=== PATIENT | female | born 1980 | race Caucasian/White ===

== ENCOUNTER 2019-08-01 08:03 | Emergency (ER) | payer OTHER, SELFPAY ==
--- NOTE | 2019-08-01 08:17 | ED.GENADULT ---
HPI - General Adult General Chief complaint: Eye Problems Stated complaint: eye problems Time Seen by Provider: 08/01/19 08:29 Source: patient Mode of arrival: ambulatory Limitations: no limitations History of Present Illness HPI narrative: 39-year-old female patient presents to the [facility] with complaints of left eye swelling that started yesterday morning. Patient states 2 nights ago she was sitting outside and has been outside a lot this weekend and she states she thinks she might of gotten some insect bites. Patient states that yesterday morning when she woke up she noticed some swelling to the top limit of her left eye. Patient states that she did have some antihistamine eyedrops at home that she was taking as well as her Flonase and did take some Benadryl last night. Patient states she woke up this morning and now has the left top lid and the lower lid swollen. Patient states it is itchy at times. Denies any pain. Denies any vision changes. Patient denies any trouble breathing, swallowing, chest pain. Patient states that she is dealing with allergies right now which is why she takes the Flonase. Related Data Home Medications Medication Instructions Recorded Confirmed norethindrone ac-eth estradiol 1 tablet PO DAILY 08/01/19 08/01/19 [June ()] Allergies Allergy/AdvReac Type Severity Reaction Status Date / Time No Known Allergies Allergy Unverified 08/01/19 08:31 Review of Systems Review of Systems: Narrative: CONSTITUTIONAL: Denies fever, chills, or sweats. EYES: Denies visual changes, redness, or discharge. Positive swelling to left upper and left lower eyelids ENT: Denies rhinorrhea, congestion, sore throat, or otalgia. CARDIOVASCULAR: Denies chest pain, palpitations, or edema. RESPIRATORY: Denies cough or dyspnea. GASTROINTESTINAL: Denies abdominal pain, nausea, vomiting, or diarrhea. GENITOURINARY: Denies dysuria or hematuria. SKIN: Denies rash or itching. MUSCULOSKELETAL: Denies back pain, joint pain, or myalgia. NEUROLOGIC: Denies headache, numbness, or weakness. PSYCHIATRIC: Denies anxiety or depression. PMFSH Comments At the time of my signature I agree with nursing past medical history, surgical, social, and family history. There is no relevant family history pertinent to the presenting complaint. Exam Narrative: Exam Narrative: GENERAL: Well-appearing, well-nourished, and in no acute distress. HEAD: Normocephalic, atraumatic. EYES: PERRLA and EOM intact without limitation or complaint of pain, no periorbital soft tissue swelling , patient does have swelling noted to the left upper lid and left lower lid on the left eye. No erythema, warmth or tenderness noted, no obvious deformity. No crusting or swelling.no tearing or draining.No photophobia. No nystagmus No FB or lesion on lid eversion. Corneas grossly clear, no obvious FB or hyphens/hypopyon. No injection to sclera. lashes clear. ENT: Nares clear, no rhinorrhea or epistaxis. Mucous membranes moist. Posterior pharynx with no erythema, tonsil enlargement, exudates or lesions present NECK: Supple. No lymphadenopathy CHEST: Clear to auscultation. No respiratory distress. HEART: Regular rate and rhythm. No murmur heard. Normal peripheral pulses. ABDOMEN: Soft, nontender, nondistended, normal active bowel sounds. EXTREMITIES: Normal range of motion. No edema. SKIN: Warm, dry, no rash. NEURO: No focal deficits. Alert and oriented x3. Course Vital Signs Vital signs: Vital Signs Temperature 36.4 C L 08/01/19 08:27 Pulse Rate 84 08/01/19 08:27 Respiratory Rate 16 08/01/19 08:27 Blood Pressure 124/78 08/01/19 08:27 Pulse Oximetry 100 08/01/19 08:27 Temperature 36.4 C L 08/01/19 08:27 Pulse Rate 84 08/01/19 08:27 Respiratory Rate 16 08/01/19 08:27 Blood Pressure 124/78 08/01/19 08:27 Pulse Oximetry 100 08/01/19 08:27 Vital signs reviewed. Medical Decision Making Differential Diagnosis Differenti
[2019-08-01 08:27] VITALS: BP 124/78; PULSE 84; RESP 16; TEMP 36.4; O2SAT 100
== END 2019-08-01 08:43 | disposition home or self-care (01) ==
PROVIDERS: Emergency Provider Nurse Practitioner Family
DX: T78.40XA Allergy, unspecified, initial encounter (principal)
CPT/HCPCS: 99213; G0463

== ENCOUNTER 2019-11-24 08:38 | Emergency (ER) | payer OTHER, SELFPAY ==
[2019-11-24 08:53] VITALS: BP 132/77; PULSE 92; RESP 16; TEMP 37.2; O2SAT 100
--- NOTE | 2019-11-24 09:00 | ED.GENADULT ---
HPI - General Adult General Chief complaint: Upper Respiratory Infection Stated complaint: Possible Sinus infection Time Seen by Provider: 11/24/19 09:00 Source: patient and RN notes reviewed Mode of arrival: ambulatory Limitations: no limitations History of Present Illness HPI narrative: 39-year-old female presents with upper respiratory infection, sneezing, some facial congestion, facial pressure for the past 1.5 months. Symptoms increased over the past 48 hours. Flonase, Zyrtec, Claritin, and Saline without relief. No facial swelling. No cough. Nasal congestion and rhinorrhea. No sore throat. No high fevers, drooling, neck or throat swelling. No voice change. No nausea, vomiting, or abdominal pain. Tolerating liquids well. Denies chills, dyspnea, difficulty swallowing, jaw pain, dental pain, foreign body sensation, and rash. No chest pain or shortness of breath. The patient reports she have not been diagnosed with COVID-19. The patient reports she is not waiting for the results of a COVID-19 lab test. The patient reports she do not have fever, chills, weakness, or fatigue. The patient reports she do not have a new or worsening cough or shortness of breath. Denies chest pain. The patient reports she do not have any loss of taste or diarrhea. Denies recent traveling. Denies concerns for COVID-19 or exposures been home with limited outdoor exposure except for essential household needs, work, and return home. At this time, patient is not suspected of having COVID-19. Some parts of this dictation were generated by voice recognition software and may contain typographical and/or grammatical inaccuracies. Related Data Home Medications Medication Instructions Recorded Confirmed norethindrone ac-eth estradiol tablet 02/28/19 [June (21)] Allergies Allergy/AdvReac Type Severity Reaction Status Date / Time No Known Allergies Allergy Unverified 11/24/19 09:12 Review of Systems Review of Systems: Narrative: CONSTITUTIONAL: Denies fever, chills, sweats. EYES: Denies visual changes, redness, discharge. ENT: Complains of rhinorrhea, congestion, facial congestion and pressure. Denies sore throat, otalgia. CARDIOVASCULAR: Denies chest pain, palpitations, edema. RESPIRATORY: Denies dyspnea, wheezing, cough. GASTROINTESTINAL: Denies abdominal pain, nausea, vomiting, diarrhea. GENITOURINARY: Denies dysuria, hematuria, abnormal discharge SKIN: Denies rash or itching. MUSCULOSKELETAL: Denies acute back pain, joint pain, or myalgia. NEUROLOGIC: Denies numbness, or focal weakness. PSYCHIATRIC: Denies anxiety or depression. All other systems reviewed & are unremarkable except as noted in HPI and below. [facility] Past Medical History Medical History (Updated 11/25/19 @ 00:00 by Bekah Saeed) Allergies Surgical History Surgical History (Updated 11/24/19 @ 09:36 by TIBURCIO Barr) History of tonsillectomy Family History Family History (Updated 11/24/19 @ 09:37 by TIBURCIO Barr) Sibling Family history of diabetes mellitus in first degree relative Family history of type 2 diabetes mellitus Father , Multiple myeloma Multiple myeloma Mother Alive and well Social History Social History (Updated 11/24/19 @ 09:37 by TIBURCIO Barr) Smoking status: Never smoker Tobacco type: cigarettes Second hand tobacco smoke exposure: No Alcohol intake: current Substance use: never Living arrangements: with family Occupation/Education: occupation Gender identity (if verbalized by the patient): Female Comments At time of signature, agree with nurse past medical, surgical, social, and family history. There is relevant patient's past medical history pertinent to the presenting complaint, no relevant family history pertinent to the presenting complaint. Exam Narrative: Exam Narrative: GENERAL: This is a well-nourished, well-developed patient, in no appare
== END 2019-11-24 09:16 | disposition home or self-care (01) ==
PROVIDERS: Emergency Provider Nurse Practitioner Family; PCP Family Medicine
DX: J32.9 Chronic sinusitis, unspecified (principal)
CPT/HCPCS: 99213; G0463

== ENCOUNTER 2020-01-13 12:08 | Outpatient (CLI) | payer OTHER, SELFPAY ==
[2020-01-13 12:38] LABS: Basophils Percent Auto 0.4 % (0.2-1.2); Eosinophils Absolute Auto 0.1 K/mm3 (0-0.3); Eosinophils Percent Auto 0.7 % (0-4.4); Hematocrit 39.1 % (37.0-47.0); Hemoglobin 13.6 g/dL (12.0-15.0); Immature Granulocyte Absolute 0.02 K/mm3 (0.00-0.031); Immature Granulocyte Percent A 0.3 % (0-0.5); Lymphocytes Absolute Auto 3.07 K/mm3 (0.9-3.2); Lymphocytes Percent Auto 43.2 % (18.3-44.2); Mean Corpuscular HGB Conc 34.8 g/dl (32-36); Mean Corpuscular Hemoglobin 30.4 pg (26-34); Mean Corpuscular Volume 87.3 fl (80-100); Mean Platelet Volume 8.9 fl (7.4-10.4); Monocytes Absolute Auto 0.4 K/mm3 (0.1-0.6); Monocytes Percent Auto 5.8 % (2.6-8.5); Neutrophils Absolute Auto 3.5 K/mm3 (1.3-6.7); Neutrophils Percent Auto 49.6 % (45.5-73.1); Platelet Count Result 299 k/mm3 (150-375); Red Blood Count 4.48 M/mm3 (4.2-5.4); Red Cell Distribution Width 11.9 % (11.5-14.5); White Blood Count 7.1 K/mm3 (4.5-10.0)
[2020-01-13 12:54] LABS: Alanine Aminotransferase 16 U/L (4-35); Albumin Level 4.3 g/dL (3.5-5.1); Alkaline Phosphatase 81 U/L (38-126); Anion Gap 7 mmol/L (8-16); Aspartate Amino Transferase 25 U/L (14-36); Bilirubin,Total 0.6 mg/dL (0.2-1.3); Blood Urea Nitrogen 13 mg/dL (7-17); Calcium 9.8 mg/dL (8.4-10.2); Carbon Dioxide 30 mmol/L (22-30); Chloride 102 mmol/L (98-107); Cholesterol 214 mg/dL (0-200); Estimated Glomerular Filt Rate > 60; Glucose 121 mg/dL (65-105); HDL Direct 64 mg/dL; Sodium 139 mmol/L (137-145); Triglycerides 184 mg/dL (<150)
[2020-01-13 13:05] LABS: LDL Cholesterol Direct 137 mg/dL
[2020-01-13 13:47] LABS: Vitamin D 25 Hydroxy 51.8 ng/mL
== END 2020-01-13 12:09 | disposition home or self-care (01) ==
PROVIDERS: PCP Family Medicine; Visit Provider Obstetrics & Gynecology
DX: Z00.00 Encounter for general adult medical examination without abnormal findings (principal)
CPT/HCPCS: 36415; 80053; 80061; 82306; 84443; 85025

== ENCOUNTER 2020-04-26 08:44 | Emergency (ER) | payer OTHER, SELFPAY ==
[2020-04-26 09:04] VITALS: BP 120/76; PULSE 83; RESP 16; TEMP 36.6; O2SAT 97
--- NOTE | 2020-04-26 09:23 | ED.EAR ---
HPI - Ear Problem General Chief complaint: Upper Respiratory Infection Stated complaint: sinus infection/ear pain Time Seen by Provider: 04/26/20 08:46 Source: patient Mode of arrival: ambulatory Limitations: no limitations History of Present Illness HPI Narrative: 50-year-old female presents to [facility] with complaints of right ear pain for the past week. Patient reports that she has had intermittent ear infections for the past 2 years. Patient reports that she has started taking Zyrtec and Flonase with little relief. Patient denies cough, runny nose, nasal congestion, fever, body aches, chills, nausea, vomiting or diarrhea. Patient is non-smoker. Patient denies sick contacts. Patient denies recent travel. MD Complaint: ear pain Location: right ear Duration: constant Exacerbating factors: nothing Discharge from ear: Reports no Treatment prior to arrival: other (Zyrtec and Flonase ) Related Data Allergies Allergy/AdvReac Type Severity Reaction Status Date / Time No Known Allergies Allergy Verified 01/13/20 11:22 Review of Systems Constitutional: Constitutional: Denies chills, Denies fatigue, Denies fever(s) and Denies weakness ENT: Denies dysphagia, Denies dizziness, Denies epistaxis, Denies nasal congestion and Denies sore throat Comments: right ear pain Cardiovascular: Cardiovascular: Denies chest pain, Denies rapid heart rate and Denies slow heart rate Respiratory: Respiratory: Denies chest congestion, Denies cough, Denies dyspnea and Denies wheezing Gastrointestinal: Gastrointestinal: Denies abdominal pain, Denies diarrhea, Denies nausea and Denies vomiting Musculoskeletal: Musculoskeletal: Denies back pain Neurologic: Denies vertigo, Denies dizziness and Denies syncope [facility] Past Medical History Medical History Allergies Surgical History Surgical History History of tonsillectomy Family History Family History Sibling Family history of diabetes mellitus in first degree relative Family history of type 2 diabetes mellitus Father , Multiple myeloma Multiple myeloma Mother Alive and well Social History Social History Smoking status: Never smoker Tobacco type: cigarettes Second hand tobacco smoke exposure: No Alcohol intake: current Substance use: never Gender identity (if verbalized by the patient): Female Comments At time of signature, I agree with nursing past medical, surgical, social and family history. There is no relevant family history pertinent to the presenting complaint. Exam Const: General: no acute distress Nutritional Appearance: well nourished Orientation/consciousness: patient oriented x3 HENMT: Head: normal to inspection Ears: external ears normal and TM abnormal with fluid behind the TM on the right Face and sinus: normal facial exam and sinuses nontender Mouth: Yes moist mucous membranes Throat: uvula midline Neck: Neck: normal visual inspection Resp: Effort & Inspection: normal respiratory effort, not labored and not tachypneic Auscultation: clear to auscultation bilaterally Cardio: Rate: regular rate, not bradycardic and not tachycardic Rhythm: regular rhythm Skin: General skin exam: normal color Rashes: no rashes Wounds: no wounds Neuro: General: patient oriented x3, moves all extremities, no meningeal signs and no focal motor deficits Speech: normal speech Psych: Appearance: grossly normal Mental Status: mental status grossly normal Affect: normal affect Attitude: cooperative Thought content: Yes Normal thought content present Course Vital Signs Vital signs: Vital Signs Temperature 36.6 C 04/26/20 09:04 Pulse Rate 83 04/26/20 09:04 Respiratory Rate 16 04/26/20 09:04 Blood Pressure 120/76 04/26/20 0
== END 2020-04-26 09:36 | disposition home or self-care (01) ==
PROVIDERS: Emergency Provider Nurse Practitioner Family; PCP Family Medicine
DX: H65.01 Acute serous otitis media, right ear (principal)
CPT/HCPCS: 99213; G0463

== ENCOUNTER 2020-05-25 11:27 | Emergency (ER) | payer OTHER, SELFPAY ==
[2020-05-25 11:42] VITALS: BP 131/83; PULSE 88; RESP 16; TEMP 36.8; O2SAT 99
--- NOTE | 2020-05-25 11:59 | ED.GENADULT ---
HPI - General Adult General Chief complaint: Ear Stated complaint: Ear Pain Time Seen by Provider: 05/25/20 11:57 Source: patient and RN notes reviewed Mode of arrival: ambulatory Limitations: no limitations History of Present Illness HPI narrative: 40-year-old female complains of right otalgia for the past 2 days. Fatou reports increase pain throughout the night. Ibuprofen 600mg this morning without relief. Denies itching or drainage. Denies URI symptoms. No facial swelling. Denies rhinorrhea and nasal congestion. No high fevers, sore throat, drooling, neck or throat swelling. Denies vomiting and abdominal pain. Tolerating liquids well. Remains active. The patient reports she have not been diagnosed with COVID-19. The patient reports she received her 2nd COVID-19 vaccine on 05/12/2020. The patient reports she is not waiting for the results of a COVID-19 lab test. The patient reports she do not have chills, weakness, or fatigue. The patient reports she do not have a new or worsening cough or shortness of breath. Denies chest pain. The patient reports she do not have any loss of taste or smell, nausea, vomiting, abdominal pain, and diarrhea. Tolerating po intake well. Denies recent traveling. Denies concerns for COVID-19 or exposures been home with limited outdoor exposure except for essential household needs, work, and return home. At this time, patient is not suspected of having COVID-19. Some parts of this dictation were generated by voice recognition software and may contain typographical and/or grammatical inaccuracies. Related Data Home Medications Medication Instructions Recorded Confirmed norethindrone ac-eth estradiol 1.5 tablet PO DAILY 05/25/20 05/25/20 [ ()] Allergies Allergy/AdvReac Type Severity Reaction Status Date / Time No Known Allergies Allergy Verified 01/13/20 11:22 Review of Systems Review of Systems: Narrative: CONSTITUTIONAL: Denies fever, chills, sweats. EYES: Denies visual changes, redness, discharge. ENT: Complains of RT otalgia. Denies rhinorrhea, congestion, sore throat. CARDIOVASCULAR: Denies chest pain, palpitations, edema. RESPIRATORY: Denies dyspnea, wheezing, cough. GASTROINTESTINAL: Denies abdominal pain, nausea, vomiting, diarrhea. SKIN: Denies rash or itching. MUSCULOSKELETAL: Denies acute back pain, joint pain, or myalgia. NEUROLOGIC: Denies numbness or focal weakness. PSYCHIATRIC: Denies anxiety or depression. All systems reviewed & are unremarkable except as noted in HPI and below. [facility] Past Medical History Medical History Allergies Surgical History Surgical History History of tonsillectomy Family History Family History Sibling Family history of diabetes mellitus in first degree relative Family history of type 2 diabetes mellitus Father , Multiple myeloma Multiple myeloma Mother Alive and well Social History Social History (Updated 05/25/20 @ 12:12 by TIBURCIO Barr) Smoking status: Never smoker Tobacco type: cigarettes Second hand tobacco smoke exposure: No Alcohol intake: current Substance use: never Living arrangements: with family Occupation/Education: occupation Gender identity (if verbalized by the patient): Female Sexual Orientation (if Verbalized by the Patient): Straight or Heterosexual Comments At time of signature, agree with nurse past medical, surgical, social, and family history. There is no relevant family history pertinent to the presenting complaint. Exam Narrative: Exam Narrative: GENERAL: This is a well-nourished, well-developed patient, in no apparent distress. Talks in full sentences and ambulates with steady gait without dyspnea. HEAD: Normocephalic, atraumatic. EYES: PERRL. Sclera cl
== END 2020-05-25 12:21 | disposition home or self-care (01) ==
PROVIDERS: Emergency Provider Nurse Practitioner Family; PCP Family Medicine
DX: H65.191 Other acute nonsuppurative otitis media, right ear (principal)
CPT/HCPCS: 99213; G0463

== ENCOUNTER 2020-07-24 08:54 | Outpatient (CLI) | payer OTHER, SELFPAY ==
[2020-07-24 09:28] LABS: Add Urine Microscopic? NO; Appearance Urine Clear (Clear); Bilirubin Urine Negative (Negative); Blood Urine Negative (Negative); Color Urine Colorless (Yellow); Glucose Urine UA Negative (Negative); Ketones Urine Negative (Negative); Leukocyte Esterase Ur Negative LEU/UL (Negative); Nitrate Urine Negative (Negative); Protein Urine Negative (Negative); Urobilinogen Urine Negative mg/dL (<2.0)
[2020-07-24 09:48] LABS: Cholesterol 222 mg/dL (0-200); HDL Direct 67 mg/dL; Triglycerides 163 mg/dL (<150)
[2020-07-24 09:50] LABS: Hemoglobin A1C 5.1 % (<5.7)
[2020-07-24 09:59] LABS: LDL Cholesterol Direct 118 mg/dL
[2020-07-24 10:06] LABS: Specific Grav Ur 1.003 (1.001-1.035)
== END 2020-07-24 08:55 | disposition home or self-care (01) ==
PROVIDERS: PCP Registered Nurse; Visit Provider Registered Nurse
DX: E78.2 Mixed hyperlipidemia (principal); R73.9 Hyperglycemia, unspecified; R03.0 Elevated blood-pressure reading, without diagnosis of hypertension
CPT/HCPCS: 36415; 80061; 81003; 83036

== ENCOUNTER 2021-05-10 02:39 | Emergency (ER) | payer OTHER, SELFPAY ==
[2021-05-10] VITALS (17 sets, daily range): BP systolic 116–134; BP diastolic 65–84; PULSE 99–118; RESP 16–27; TEMP 37–38.1; O2SAT 93–100
--- NOTE | ~2021-05-10 | XR_ITS ---
EXAMINATION: XR chest 1V portable DATE: 05/10/2021 03:25 INDICATION: Syncope. TECHNIQUE: A single frontal view of the chest was obtained. COMPARISON: None. FINDINGS: The chest demonstrates clear lungs without pneumonia, pleural effusion, or pneumothorax. Th e heart size is normal. IMPRESSION: 1. No acute cardiopulmonary disease. Reviewed, dictated and finalized at location A. [employer] OPERATOR
--- NOTE | 2021-05-10 03:01 | ECG_ITS ---
Measurements Intervals [place] Rate: 104 P: 35 WA: 121 QRS: 49 QRSD: 78 T: -20 QT: 295 QTc: 389 Interpretive Statements SINUS TACHYCARDIA BORDERLINE ECG BASELINE ARTIFACT NO PREVIOUS ECG AVAILABLE FOR COMPARISON Electronically Signed On 05-10-2021 13:57:19 [employer] by Sony Sparks M.D.
--- NOTE | 2021-05-10 03:13 | ED.SYNCOPE ---
HPI - Syncope General Chief Complaint: Syncope Stated Complaint: syncope, fall and hit head Time Seen by Provider: 05/10/21 02:42 Source: patient and RN notes reviewed Mode of arrival: ambulatory Limitations: no limitations History of Present Illness HPI narrative: This is a 41 year old female who presents for evaluation of a syncopal episode. Patient states tonight around 1 am she woke up feeling her heart racing. Afterwards, she developed tinging all over, nausea and dizziness . Her states patient was leaning over on the edge of the bed, and she fell forward brazing her head on dresser. He states patient brief loss of consciousness. Patient states she has been dealing with presumed influenza symptoms. Her daughter was diagnosed with influenza this past week, and she started having similar symptoms 2 days ago. She is having sinus drainage and congestion and dry cough. She denies chest pain, sob, nausea, vomiting, fever or abdominal pain. She has had previous episode of syncope when she has had viral illness in the past. She denies headache, dizziness, or nausea currently. She also denies neck pain. Related Data Home Medications Medication Instructions Recorded Confirmed norethindrone ac-eth estradiol 1.5 tablet PO DAILY 05/25/20 05/25/20 [Junel ()] Allergies Allergy/AdvReac Type Severity Reaction Status Date / Time No Known Allergies Allergy Verified 07/20/20 15:36 Review of Systems Review of Systems: All systems reviewed & are unremarkable except as noted in HPI and below PMFSH Past Medical History Medical History Allergies Surgical History Surgical History History of tonsillectomy Family History Family History Sibling Family history of diabetes mellitus in first degree relative Family history of type 2 diabetes mellitus Father , Multiple myeloma Multiple myeloma Mother Alive and well Social History Social History Smoking status: Never smoker Tobacco type: cigarettes Second hand tobacco smoke exposure: No Alcohol intake: current Substance use: never Gender identity (if verbalized by the patient): Female Sexual Orientation (if Verbalized by the Patient): Straight or Heterosexual Exam Const: General: no acute distress and alert Orientation/consciousness: patient oriented x3 Eyes: EOM: EOMs intact bilaterally Chest: Chest palpation & inspection: normal inspection of the chest Resp: Effort & Inspection: normal respiratory effort and no retractions Auscultation: clear to auscultation bilaterally Cardio: Rate: tachycardic Rhythm: regular rhythm Heart sounds: no murmurs GI: GI Palp: Yes Soft to palpation, No Tenderness to palpation present (GI) and No Guarding due to palpation present (GI) Auscultation: normal bowel sounds Back/Spine/Pelvis: Back: no CVA tenderness Skin: General skin exam: normal color Rashes: no rashes Neuro: General: patient oriented x3, moves all extremities and CN's II-XI intact bilaterally Gait exam (Neuro): Normal gait present Extrem: General: normal to inspection Psych: Mental Status: mental status grossly normal Affect: normal affect Course Reevaluation(s) Reevaluation #1: Patient has no complaints. She denies headache, dizziness, vomiting. GCS 15. Patient has influenza A and she likely had vasovagal reaction. She has low grade fever so will given tylenol. I have discussed with patient and she is agreeable to discharge home. Date: 05/10/21 Time: 06:00 Vital Signs Vital signs: Vital Signs Temperature 98.6 F 05/10/21 02:56 Pulse Rate 103 H 05/10/21 02:56 Respiratory Rate 16 05/10/21 02:56 Blood Pressure 116/65 05/10/21 02:56 Pulse Oximetry 99 05/10/21 02:
[2021-05-10 03:24] LABS: Basophils Percent Auto 0.4 % (0.2-1.2); Eosinophils Percent Auto 0.1 % (0-4.4); Hematocrit 39.6 % (37.0-47.0); Hemoglobin 13.1 g/dL (12.0-15.0); Immature Granulocyte Absolute 0.02 K/mm3 (0.00-0.031); Immature Granulocyte Percent A 0.2 % (0-0.5); Lymphocytes Percent Auto 16.5 % (18.3-44.2); Mean Corpuscular HGB Conc 33.1 g/dl (32-36); Mean Corpuscular Hemoglobin 30.4 pg (26-34); Mean Corpuscular Volume 91.9 fl (80-100); Mean Platelet Volume 9.2 fl (7.4-10.4); Monocytes Absolute Auto 0.7 K/mm3 (0.1-0.6); Monocytes Percent Auto 8.7 % (2.6-8.5); Neutrophils Absolute Auto 6.3 K/mm3 (1.3-6.7); Neutrophils Percent Auto 74.1 % (45.5-73.1); Platelet Count Result 196 k/mm3 (150-375); Red Blood Count 4.31 M/mm3 (4.2-5.4); White Blood Count 8.5 K/mm3 (4.5-10.0)
[2021-05-10 03:37] LABS: Lactic Acid Reflex 1.4 mmol/L (0.7-2.1)
[2021-05-10] MEDS: LACTATED RINGERS 1,000 ML 999 ML IV CONT ×2 (03:38→04:56)
[2021-05-10 03:39] LABS: Alanine Aminotransferase 19 U/L (4-35); Albumin Level 3.6 g/dL (3.5-5.1); Alkaline Phosphatase 71 U/L (38-126); Anion Gap 5 mmol/L (8-16); Aspartate Amino Transferase 29 U/L (14-36); Bilirubin,Total 0.2 mg/dL (0.2-1.3); Blood Urea Nitrogen 10 mg/dL (7-17); Calcium 7.8 mg/dL (8.4-10.2); Carbon Dioxide 26 mmol/L (22-30); Chloride 105 mmol/L (98-107); Estimated CRCL calculation 77 ml/min; Estimated Glomerular Filt Rate > 60; Glucose 123 mg/dL (65-110); Magnesium 1.8 mg/dL (1.6-2.3); Potassium 3.3 mmol/L (3.4-5.0); Sodium 136 mmol/L (137-145)
[2021-05-10 03:46] LABS: Add Urine Microscopic? YES; Appearance Urine Clear (Clear); Bilirubin Urine Negative (Negative); Blood Urine 1+ (Negative); Color Urine Yellow (Yellow); Glucose Urine UA Negative (Negative); Ketones Urine Negative (Negative); Leukocyte Esterase Ur Negative LEU/UL (Negative); Nitrate Urine Negative (Negative); Protein Urine Negative (Negative); Specific Grav Ur 1.014 (1.001-1.035); Squamous Epithelial Cell Urine Rare /hpf (Few); Urobilinogen Urine Negative mg/dL (<2.0); WBC Urine 0-3 /hpf
[2021-05-10 03:51] LABS: INR 1.1; Partial Thromboplastin Time 27.5 SECONDS (22.3-36.8); Prothrombin Time 13.8 Seconds (11.1-14.7)
[2021-05-10 03:56] LABS: Troponin I < 0.012 ng/mL (0.000-0.034)
[2021-05-10] MEDS: POTASSIUM CHLORIDE 20 MEQ TABLET 40 MEQ PO (04:09)
[2021-05-10 04:14] LABS: D Dimer 0.22 ug/mL (<0.48)
[2021-05-10 04:17] LABS: SARS-CoV-2 RNA PCR Negative
== END 2021-05-10 07:02 | disposition home or self-care (01) ==
PROVIDERS: Emergency Provider General Practice; PCP Registered Nurse
DX: J10.1 Influenza due to other identified influenza virus with other respiratory manifestations (principal); R55 Syncope and collapse; E86.0 Dehydration; Z20.822 Contact with and (suspected) exposure to COVID-19
CPT/HCPCS: 36415; 71045; 80053; 81001; 81025; 83605; 83735; 84484; 85025; 85380; 85610; 85730; 87804; 93005; 96361; 96374; 99284; A9270; C9803; J0131; J7120; U0003; U0005

== ENCOUNTER 2021-06-06 10:50 | Outpatient (CLI) | payer OTHER, SELFPAY ==
[2021-06-06 11:43] LABS: T4 Thyroxine 9.65 ug/dL (5.53-11.0)
== END 2021-06-06 10:51 | disposition home or self-care (01) ==
LOC: ANHLAB 10:51
PROVIDERS: PCP Registered Nurse; Visit Provider Obstetrics & Gynecology
DX: R63.5 Abnormal weight gain (principal)
CPT/HCPCS: 36415; 84436; 84443

== ENCOUNTER 2022-07-11 18:26 | Emergency (ER) | payer OTHER, SELFPAY ==
[2022-07-11 18:40] VITALS: BP 135/97; PULSE 88; RESP 16; TEMP 37.1; O2SAT 98
--- NOTE | 2022-07-11 18:50 | ED.LOWEXIN ---
HPI - Extremity Injury (Lower) General Chief Complaint: Extremity Injury, Lower Stated Complaint: L LOWER LEG INJURY History of Present Illness HPI Narrative: 42 year old female presents to the c/o left calf injury. 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 Patient states she caught herself using her right leg. Patient denies any fall or any other injuries. Patient states she has difficulty bearing weight on their left foot. Patient states her calf pain is positional and becomes worsen with plantar and dorsal flexion. Patient states it hurts the worst with bend her left knee. Patient stated she started weight training on Friday this week and believes she may already injured her left leg earlier this week. Patient denies any previous leg injuries or Achilles injury history. Related Data Home Medications Medication Instructions Recorded Confirmed No Home Medications 07/11/22 07/11/22 Allergies Allergy/AdvReac Type Severity Reaction Status Date / Time No Known Allergies Allergy Verified 07/11/22 18:38 Review of Systems Musculoskeletal: Comments: Positive for leg injury Integumentary/Breasts: Comments: Negative for wound PMFSH Past Medical History Medical History Allergies Surgical History Surgical History History of tonsillectomy Family History Family History Sibling Family history of diabetes mellitus in first degree relative Family history of type 2 diabetes mellitus Father , Multiple myeloma Multiple myeloma Mother Alive and well Social History Social History Smoking status: Never smoker Second hand tobacco smoke exposure: No Alcohol intake: current Substance use: never Lack of Transportation: No Lack of Food: Never True Current Housing: I Have Housing Concerned About Future Housing: No Difficulty Paying Gas/Electric Bills: No Difficulty Paying for Meds: No Currently Unemployed: No Education: Master's Degree or Higher Difficulty w/ Childcare or Family Care: No Living arrangements: with family Occupation/Education: occupation Gender identity (if verbalized by the patient): Female Sexual Orientation (if Verbalized by the Patient): Straight or Heterosexual Exam Const: General: healthy appearing, no acute distress and alert Extrem: General: normal to inspection, no clubbing, cyanosis or edema and no pedal edema Other: Patient has a small focal area that feels as spasm or deep hematoma with no palpable cord or asymmetry at the left calf. Sandhu test negative. Distal PMS intact. No erythema or warmth present. Course Course Emergency Course: Radiology is not available however, I believe radiographic imagery will not provide any diagnostic information given patient examination and HPI. Patient does not exhibit signs of a deep vein thrombosis or any risk factors for a deep vein thrombosis. Plan to provide RICE, crutches provided to prevent weight-bearing activities. Rod wrap applied to the left lower leg. Patient to take over the counter Motrin or Tylenol for pain. Patient to follow up with ortho pr their PCP on Friday if pain persists. Patient to go to the ED if her left calf swells or pain increases over the weekend. Level of Care: Express Care Visit ([id number]) Vital Signs Vital signs: Vital Signs Temperature 37.1 C 07/11/22 18:40 Pulse Rate 88 07/11/22 18:40 Respiratory Rate 16 07/11/22 18:40 Blood Pressure 135/97 H 07/11/22 18:40 Pulse Oximetry 98 07/11/22 18:40 Oxygen Delivery Room Air 07/11/22 18:4
== END 2022-07-11 19:21 | disposition home or self-care (01) ==
PROVIDERS: Emergency Provider Nurse Practitioner Family; PCP Obstetrics & Gynecology
DX: S86.112A Strain of other muscle(s) and tendon(s) of posterior muscle group at lower leg level, left leg, initial encounter (principal); X50.9XXA Other and unspecified overexertion or strenuous movements or postures, initial encounter; Y93.68 Activity, volleyball (beach) (court); Y99.0 Civilian activity done for income or pay
CPT/HCPCS: 99212; G0463

== ENCOUNTER 2023-02-22 18:22 | Emergency (ER) | payer OTHER, SELFPAY ==
[2023-02-22 18:32] VITALS: BP 141/85; PULSE 88; RESP 18; TEMP 36.6; O2SAT 100
--- NOTE | 2023-02-22 18:34 | ED.GENADULT ---
HPI - General Adult General Chief complaint: Wound/Laceration Stated complaint: Dizziness/ Bruised Left Thigh Time Seen by Provider: 02/22/23 18:34 Source: patient, RN notes reviewed and old records reviewed Mode of arrival: ambulatory Limitations: no limitations History of Present Illness HPI narrative: 43-year-old female presents to the [facility] with complaints of tonight during dinner states that she felt extremely overwhelmed, felt tingling and that her heart was racing. Currently with no symptoms. Patient also is concerned for a bruise to the left lateral upper thigh. States it has been there for several days. Patient states that she started cochlear symptoms was worried about a blood clot. Discussed with patient that we cannot work up for blood clot that that would always be emergency room visit. No swelling noted to extremities Patient is nontoxic, vitals stable. Symptoms of the heart racing feeling overwhelmed just started within the last 2 hours, offered COVID and flu testing, patient declined Related Data Home Medications Medication Instructions Recorded Confirmed No Home Medications 07/11/22 02/22/23 Allergies Allergy/AdvReac Type Severity Reaction Status Date / Time No Known Allergies Allergy Verified 02/22/23 18:35 Review of Systems Review of Systems: All systems reviewed & are unremarkable except as noted in HPI and below Constitutional: Constitutional: Reports as per HPI Eyes: Eyes: Reports no additional eye complaints ENT: Reports system reviewed and no additional complaints, except as documented Cardiovascular: Cardiovascular: Reports no additional cardiovascular complaints, Denies chest pain and Denies dyspnea Respiratory: Respiratory: Reports no additional respiratory complaints, Denies chest congestion, Denies cough and Denies dyspnea Gastrointestinal: Gastrointestinal: Reports no additional gastrointestinal complaints, Denies abdominal pain, Denies nausea and Denies vomiting Musculoskeletal: Musculoskeletal: Reports no additional musculoskeletal complaints Integumentary/Breasts: Skin/Breast: Reports as per HPI Neurologic: Reports as per HPI Psychiatric: Psychiatric: Reports no additional psychiatric complaints Allergic/Immunologic: Allergic/Immunologic: Reports no additional allergic/immunologic complaints [facility] Past Medical History Medical History Allergies Surgical History Surgical History History of tonsillectomy Family History Family History Sibling Family history of diabetes mellitus in first degree relative Family history of type 2 diabetes mellitus Father , Multiple myeloma Multiple myeloma Mother Alive and well Social History Social History Smoking status: Never smoker Second hand tobacco smoke exposure: No Alcohol intake: current Substance use: never Lack of Transportation: No Lack of Food: Never True Current Housing: I Have Housing Concerned About Future Housing: No Difficulty Paying Gas/Electric Bills: No Difficulty Paying for Meds: No Currently Unemployed: No Education: Master's Degree or Higher Difficulty w/ Childcare or Family Care: No Living arrangements: with family Occupation/Education: occupation Gender identity (if verbalized by the patient): Female Sexual Orientation (if Verbalized by the Patient): Straight or Heterosexual Comments At the time of my signature, I reviewed and agree with the nursing past medical, surgical, social, and family history. There is no relevant family history pertinent to the patient complaint. Exam Const: General: cooperative, healthy appearing, comfortable, no acute distress, well developed, alert and well nourished Nutritional Appearance: well nourished
== END 2023-02-22 18:48 | disposition home or self-care (01) ==
PROVIDERS: Emergency Provider Nurse Practitioner; PCP Obstetrics & Gynecology
DX: S70.12XA Contusion of left thigh, initial encounter (principal); X58.XXXA Exposure to other specified factors, initial encounter; H65.03 Acute serous otitis media, bilateral
CPT/HCPCS: 99212; G0463

== ENCOUNTER → 2023-05-02 11:13 | Outpatient (CLI) | payer OTHER, SELFPAY ==
--- NOTE | ~2023-05-02 | MM_ITS ---
EXAMINATION: MM screening [facility] BI w kathy HISTORY: Screening TECHNIQUE: Craniocaudal and mediolateral oblique 3-D tomosynthesis images were obtained and synthetic 2-D images were generated. CAD analysis was submitted and interpreted. COMPARISON: No prior mammogram is available for comparison at this institution. BREAST PARENCHYMAL COMPOSITION: There are scattered areas of fibroglandular density. FINDINGS: There is no evidence of suspicious mass, calcification, or architectural distortion to sugg est malignancy in either breast. There has been no suspicious interval change. IMPRESSION: 1. No mammographic evidence of malignancy. 2. Recommend routine screening mammography in one year. BI-RADS Category 1: Negative Reviewed, dictated and finalized at location A. [employer]
== END ==
PROVIDERS: PCP Obstetrics & Gynecology; Visit Provider Obstetrics & Gynecology
DX: Z12.31 Encounter for screening mammogram for malignant neoplasm of breast (principal)
CPT/HCPCS: 77063; 77067

== ENCOUNTER 2024-10-29 12:19 | Outpatient (CLI) | payer OTHER, SELFPAY ==
--- NOTE | ~2024-10-29 | MM_ITS ---
EXAMINATION: MM screening [facility] BI w kathy HISTORY: Screening TECHNIQUE: Craniocaudal and mediolateral oblique 3-D tomosynthesis images were obtained and synthetic 2-D images were generated. CAD analysis was submitted and interpreted. COMPARISON: 05/02/2023 BREAST PARENCHYMAL COMPOSITION: There are scattered areas of fibroglandular density. FINDINGS: There is no evidence of suspicious mass, calcification, or architectural distortion to suggest malignancy in either breast. IMPRESSION: 1. No mammographic evidence of malignancy. 2. Recommend routine screening mammography in one year. BI-RADS Category 1: Negative Reviewed, dictated and finalized at location B.
== END 2024-10-29 12:20 | disposition home or self-care (01) ==
LOC: MICIMG 12:20
PROVIDERS: PCP Obstetrics & Gynecology; Visit Provider Nurse Practitioner Obstetrics & Gynecology
DX: Z12.31 Encounter for screening mammogram for malignant neoplasm of breast (principal)
CPT/HCPCS: 77063; 77067